=== PATIENT | male | born 1970 | race Caucasian/White ===

== ENCOUNTER 2024-02-11 21:13 | Emergency (ER) | payer OTHER, SELFPAY ==
[2024-02-11] VITALS (8 sets, daily range): BP systolic 104–134; BP diastolic 74–89; PULSE 64–92; BMI 26.8
--- NOTE | 2024-02-11 22:32 | ED.GENMED ---
History of Present Illness
General
Chief Complaint: Fainting/Passed Out
Source: patient and spouse
Exam Limitations: none
Time Seen by Provider: 02/11/24 22:09
Nursing documentation reviewed up to this point in time: agreed with
History of Present Illness
History of Present Illness:
This is a 53-year-old gentleman who has history of hypertension, hyperlipidemia, BPH, depression as well as obesity.
Through diet, exercise as well as initiation of Zepbound patient has successfully lost 52 pounds since May of this year.
He does note several month history of intermittent lightheadedness, worse with abrupt standing. Hydrochlorothiazide was discontinued 4 months ago but he has continued with lisinopril 20 mg daily. He does monitor his blood pressure at home and
generally is well-controlled 110-120 systolic over 70-80.
He has been exercising on a regular basis without difficulty, without dizziness nor lightheadedness. Without chest pain or shortness of breath.
Tonight he admits to suffered a syncopal event, feeling significantly lightheaded and dizzy just prior to passing out. He denies diaphoresis, denies nausea. He fell onto a dog bed; he is unsure if he hit his head but denies headache, denies
posterior neck nor back pain. No chest pain no palpitations, no abdominal pain, no nausea nor vomiting. He also admits to near syncopal event earlier today after quickly standing up.
He does note mild right superior trapezius 'stiffness' otherwise denies shoulder pain, denies neck pain. No weakness nor numbness. His daily medications include lisinopril
20 mg which she has been maintained on for the past 3 to 4 years. Zepbound 5 mg weekly, tamsulosin 0.4 mg, simvastatin 20 mg, Effexor 150 mg, lamotrigine. Several vitamins, co-Q 10.
Past History
Past History
ED Past Medical History: HTN, Hypercholesterolemia, Psychiatric and Other (BPH)
ED Past Surgical History: None
Social History
Tobacco: Non-smoker
Alcohol: None
Drug: None
Personal:
Living: with family
Employment: Employed
Family History
Family History: Other (Noncontributory)
Phy Exam
Physical Exam
Physical Exam:
GENERAL: Alert , in no apparent distress. 53-year-old gentleman appears his stated age, awake and alert, pleasant, appears in no acute distress. is accompanying.
EYE: pupils equal and reactive. anicteric. The head is normocephalic, atraumatic.
NECK: Supple, nontender, no midline bony tenderness, full cervical range of motion without difficulty nor pain, no meningismus, no significant adenopathy.
ENT: posterior pharynx is clear, oral mucosa is moist. TM clear b/l, nares patent.
CARDIAC: Regular rate and rhythm. no murmur. No chest wall tenderness.
LUNGS: Clear breath sounds bilaterally, no acute respiratory distress, no wheezes/rales/rhonchi
ABDOMEN: Soft, nondistended, without focal tenderness, no r/g, no cvat. normoactive BS.
BACK: No midline bony tenderness. No contusions nor abrasions.
NEUROLOGICAL: Alert and oriented x3, no focal neuro deficits.
SKIN: Warm and dry, normal color, skin intact. No rash.
MUSCULOSKELETAL: No C/C/E. peripheral pulses are full and equal b/l. No palpable tenderness.
PSYCH: Normal and appropriate interaction.
Course
Orders/Labs/Results
Orders:
Orders
02/11/24 21:14
ECG [Electrocardiogram (*1)] Urgent
Reason for Study: Syncope
EKG- Treatment ONCE
02/11/24 22:14
0.9% Sodium Chloride 1000 ml [Nss] 1,000 ml IV BOLUS
02/11/24 23:02
Complete Blood Count/With Diff Urgent
Comprehensive Metabolic Panel Urgent
Troponin I Urgent
02/12/24 00:16
Orthostatic VS- Treatment ONCE
11/18/24 00:27
0.9% Sodium Chloride 1000 ml [Nss] 1,000 ml IV BOLUS
Abnormal Lab Results
02/11/24
23:02
ALT 72 H U/L
(0-50)
02/11/24 23:02
02/11/24 23:02
Vital Signs
Initial and Last Documented VS:
Initial Vital Signs
Temp Pulse Resp BP Pulse Ox
98.4 F 83 20 119/77 100
02/11/24 21:15 02/11/24 21:15 02/11/24 21:15 02/11/24 21:15 02/11/24 21:15
Last Documented Vital Signs
Temp Pulse Resp BP Pulse Ox
98.4 F 64 13 106/77 100
02/11/24 21:15 02/12/24 01:15 02/12/24 01:15 02/12/24 01:06 02/11/24 21:15
MDM/Problems Addressed
Differential Diagnosis Includes:
Patient presents after syncopal event at home with prodrome of significant lightheadedness. Reports similar near syncopal events over the past several months most noted with rapid standing.
Orthostatic vital signs are positive with blood pressure dropping from 119/74 to 104/55 with standing. Heart rate increases from 64 to 92.
History is most consistent with orthostasis as cause for syncope. Other consideration is arrhythmia, electrolyte abnormality, less likely anemia.
Reassuring that he has remained asymptomatic with physical activity/exercise.
I suspect orthostasis is exacerbated with ongoing weight loss and at this point would recommend titrating lisinopril down from 20 to 10 mg daily.
Will check labs and give an IV fluid bolus.
Will continue clinical research monitor. Thus far showing normal sinus rhythm with rare PACs.
EKG overall unremarkable showing normal sinus rhythm, 1 PAC otherwise unremarkable.
Chronic conditions affecting care: HTN and Other (Obesity/overweight-ongoing successful intentional weight loss)
*Pulse Oximetry
Patient hypoxic: no
*EKG
Interpreted by ED Provider?: Yes
Comparison EKG: no comparison EKG present
Rate: normal
Rhythm: sinus and PAC's (1 unifocal PAC)
Magnet: normal axis
Interval: normal interval
QRS Pattern: normal QRS
Ischemia: no ischemia
*Gun Number Interpretation
Rate: normal
Interpretation: normal
Rhythm: sinus and PAC's
*Critical Care Note
Total Time (30-74mins, 75-104mins- exclusive of procedures): Not Applicable
Update Note
Update Note:
Labs are unremarkable.
Patient remained mildly orthostatic after first liter normal saline solution thus an additional liter has been provided with resolution of orthostasis.
Will discharge to home with recommendations he hold his lisinopril today, Monday, February 10 and then resume tomorrow, February 11 at 10 mg daily.
Recommend he monitor his blood pressure at home, no more than once per day, record results and follow-up with PCP for recheck.
ED Attending Note
-
Portions of this chart may have been created with voice recognition software.� Occasional wrong word or��sound alike� substitutions may have occurred due to the inherent limitations of voice recognition software.
Discharge Plan
Departure
Patient Disposition: Home (Routine Discharge)
Date of Disposition: 02/12/24
Time of Disposition: 02:07
Patient with high blood pressure during this ER visit?: No
Condition: Good
Discharge Problem:
Syncope and collapse, Orthostatic hypotension
Instructions: Syncope (Fainting) (DC)
Prescriptions:
No Action
cephalexin 500 MG capsule
500 mg PO QID Qty: 28 0RF
ibuprofen 600 MG tablet
600 mg PO Q6H Qty: 30 0RF
hydrocodone-acetaminophen [Vicodin] 1 EACH tablet
1 ea PO Q4 PRN (Reason: pain) Qty: 14 0RF
Referrals:
Ilir Fernando DO [Family Provider] - Call in 1-3 days for appt
Activity Restrictions/Additional Instructions:
Hold your lisinopril today, Monday, February 10.
Resume lisinopril tomorrow at 1/2 tablet / 10 mg daily.
Monitor your blood pressure once daily, record results and follow-up with your primary care physician within the next week or 2 for recheck.
Stay well-hydrated on a daily basis.
Interventions
Interventions:
*Risk Screen - Suicide Last Done: 02/11/24 21:15
*General Assessment Last Done: 02/11/24 21:52
*Neglect/Abuse Screening Last Done: 02/11/24 21:15
ED- Fall Risk Assessment Last Done: 02/11/24 21:54
*ED COVID-19 Vaccine History Last Done: 02/11/24 21:52
ED- Cardiac Assessment Last Done: 02/11/24 21:54
ED- Neurological Assessment Last Done: 02/11/24 21:54
Discharge Date and Time
Print Language: HUNGARIAN
[2024-02-11] MEDS: NSS 1000 IV (23:04)
[2024-02-11 23:19] LABS: % Basophils 0.7 % (0-2); % Eosinophils 2.1 % (0-6); % Immature Granulocytes 0.1 % (0-0.5); % Lymphocytes 39.8 % (20.5-51.1); % Monocytes 7.7 % (1.7-9.3); % Neutrophils 49.6 % (42.2-75.2); Absolute Basophils 0.1 10^3/uL (0-0.2); Absolute Eosinophils 0.2 10^3/uL (0-0.7); Absolute Lymphocytes 3.2 10^3/uL (1.2-3.4); Absolute Monocytes 0.6 10^3/uL (0.1-0.6); Hematocrit 43.2 % (39.0-52.0); Hemoglobin 14.7 g/dL (13.0-18.0); Mean Corpuscular Hgb 30.1 pg (27.0-31.0); Mean Corpuscular Volume 88.5 fL (80.0-94.0); Mean Platelet Volume 10.2 fL (7.4-10.4); Nucleated Red Blood Cells % 0 % (-); Platelet Count 219 10^3/uL (130-400); Red Blood Cell Count 4.88 10^6/uL (4.70-6.10); Red Cell Dist. Width 13.2 % (11.5-14.5); White Blood Cell Count 8.1 10^3/uL (4.8-10.8)
[2024-02-11 23:38] LABS: ALT (SGPT) 72 U/L (0-50); AST (SGOT) 51 U/L (17-59); Albumin 4.3 g/dl (3.5-5.0); Alkaline Phosphatase 67 U/L (38-126); Blood Urea Nitrogen 14 mg/dl (9-20); Calcium 9.3 mg/dl (8.4-10.2); Carbon Dioxide 28 mmol/L (22-30); Chloride 101 mmol/L (98-107); Estimated Creatinine Clearance 118 ml/min; Glucose 94 mg/dl (70-99); Potassium 3.7 mmol/L (3.5-5.1); Sodium 139 mmol/L (135-145); Total Bilirubin 0.2 mg/dl (0.2-1.3); Total Protein 6.3 g/dl (6.3-8.2); eGFR > 60.00
[2024-02-11 23:43] LABS: Troponin I < 0.012 ng/ml
[2024-02-12] VITALS (7 sets, daily range): BP systolic 94–113; BP diastolic 73–79; PULSE 58–77
[2024-02-12] MEDS: NSS 1000 IV (00:27)
== END 2024-02-12 02:17 | disposition home or self-care (01) ==
LOC: EMR 21:13
PROVIDERS: EMERGENCY PHYSICIAN Emergency Medicine; FAMILY PHYSICIAN Family Medicine
DX: I95.1 Orthostatic hypotension (principal); E78.00 Pure hypercholesterolemia, unspecified; I10 Essential (primary) hypertension; N40.0 Benign prostatic hyperplasia without lower urinary tract symptoms; Z79.899 Other long term (current) drug therapy
CPT/HCPCS: 96360; 96361; 99284; 80053; 84484; 85025; 93005